=== PATIENT | female | born 1970 | race Caucasian/White ===

== ENCOUNTER 2016-07-07 21:12 | Emergency (ER) | payer SELFPAY ==
--- NOTE | ~2016-07-07 | ER ---
PATIENT'S NAME: MADALYN KENDALL [facility] AGE: 45 Y [address] ROOM: [place] [id number] LOCATION: ED ADMIT DATE: 07/07/2016 ER/Outpatient Report DISCHARGE DATE: 07/07/2016 FAMILY PHYSICIAN: Physician, Unknown ATTENDING PHYSICIAN: Renuka Bowen CHIEF COMPLAINT: Left leg pain. TIME OF THE PATIENT ARRIVAL: 2117 hours. TIME OF THE PATIENT EVALUATION: 2124 hours. HISTORY OF PRESENT ILLNESS: This is a 45-year-old female who presents to the ER. She states she has been dealing with some swelling to her left knee for approximately a month or 2. She states she does not remember injuring her knee, but she states that when she bends it or climbs stairs, she can hear some cracking and popping in it. She states she has she been using a knee sleeve over it to kind of help with that as well. Then, she states 2 mornings ago, she woke up to a Charley horse in her left medial thigh. She states it lasts approximately 40 minutes and then finally it went away. She then developed a hematoma to that area, where her Charley horse was. She is concerned that maybe she has a blood clot in her legs that could be causing her legs to have a Charley horse as well as knee swelling. ALLERGIES AND MEDICATIONS: Please see medication list nurse's notes. PAST MEDICAL HISTORY: Hypothyroidism. 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 SOCIAL HISTORY: She does smoke cigarettes. Smokes marijuana occasionally. Drinks alcohol rarely. REVIEW OF SYSTEMS: A 10-point review of systems was completed and was negative with the exception of those discussed in the HPI. PATIENT'S NAME: MADALYN KENDALL [facility] AGE: 45 Y [address] ROOM: [place], [place] [address] LOCATION: [facility] ADMIT DATE: 07/07/2016 ER/Outpatient Report DISCHARGE DATE: 07/07/2016 FAMILY PHYSICIAN: Physician, Unknown ATTENDING PHYSICIAN: Renuka Bowen PHYSICAL EXAMINATION: VITAL SIGNS: Height 5 feet, 4 inches stated, weight 117.2 kg taken, blood pressure is 132/75, pulse 93, respirations 16, temperature 97.8 degrees tympanically, and saturations 97% on room air. Navid Coma Score is 15. GENERAL: Alert, calm, obese female, in no acute distress. HEENT: Head: Normocephalic. Eyes: Pupils are equal and reactive. Does display moist mucous membranes. LUNGS: Clear to auscultation bilaterally. No wheezes or crackles. HEART: Regular rate and rhythm. EXTREMITIES: She does have ecchymosis noted to the medial aspect of her left thigh. There is some tenderness to the palpation over that entire area. It is not warm to touch. Knee: She does have some swelling noted to her left knee. She has some generalized tenderness over all of the aspects of her knee. She has no calf tenderness. Negative Homans sign on that leg. She has good pedal pulses. NEURO: Cranial nerves 2 through 12 grossly intact. Gait is steady without assistance. LABORATORY DATA: Labs none were done. Ultrasound was done of the left lower extremity and was negative for DVT. IMPRESSION: 1. Left medial thigh hematoma. 2. Left knee swelling x2 months. ASSESSMENT AND PLAN: I did give the patient reassurance. We did give her 2 [place] here in the emergency room for pain. I will dismiss her to home with a prescription for [place] to use as directed. She needs to place ice at these areas. She may use ibuprofen every 6 hours if needed and she needs to follow up with her primary care physician or [facility]. The patient understands and agrees with care. SARA BAZAN PA-C FOR MD [facility] EARL/ayad /[id number] d: 07/08/16 0148 t: 07/09/16 0539, OUTPATIENT REPORT
--- NOTE | ~2016-07-07 | ENPV ---
Vascular Lower Extremities DVT Study Procedure Demographics Patient Name MADALYN KENDALL Date of Study 07/07/2016 Patient Number [id number] Gender Female Date of 1970 Age 45 Visit Number [id number] Height Accession Number [id number] Weight Room Number BSA BMI Referring Jessi Huber Interpreting Raulito Campos MD Physician Physician Physician Ordering Jessi Grayson MD Pediatric Speech Therapist Physician Permit Review Assistant Amparo [facility], [facility] Conclusions Summary No evidence of deep vein thrombosis or superficial thrombophlebitis in the left lower extremity. Procedure Type of Study: Veins:Lower Extremities DVT Study, Lower Extremity Left. Indications for Study:Swelling of Limb. Appropriate Use Criteria:9 Patient Status:STAT. Study Location:ER. Technical Quality:Adequate visualization. Velocities are measured in cm/s ; Diameters are measured in cm Left Lower Extremities DVT Study Measurements Left 2D and Doppler Measurements + + + + +------+------+ + !Location !Visualized!Compressibility!Thrombosis!Signal!Reflux!Reflux ! ! ! ! ! ! ! !(sec) ! + + + + +------+------+ + !GSV Thigh !Yes !Yes !None !Phasic! ! ! + + + + +------+------+ + !Common !Yes !Yes !None !Phasic! ! ! !Femoral ! ! ! ! ! ! ! + + + + +------+------+ + !Prox !Yes !Yes !None !Phasic! ! ! !Femoral ! ! ! ! ! ! ! + + + + +------+------+ + !Mid Femoral!Yes !Yes !None !Phasic! ! ! + + + + +------+------+ + !Dist !Yes !Yes !None !Phasic! ! ! !Femoral ! ! ! ! ! ! ! + + + + +------+------+ + !Popliteal !Yes !Yes !None !Phasic! ! ! + + + + +------+------+ + !Gastroc !Yes !Yes !None !Phasic! ! ! + + + + +------+------+ + !PTV !Yes !Yes !None !Phasic! ! ! + + + + +------+------+ + !Peroneal !Yes !Yes !None !Phasic! ! ! + + + + +------+------+ + Signature dtt: GAY JACOBS dtd: 07/07/16 2201 Physician Self Edit
== END 2016-07-07 22:41 | disposition disaster alternative care site (69) ==
LOC: GMED 21:12
DX: M79.81 Nontraumatic hematoma of soft tissue (principal); M25.462 Effusion, left knee; E03.9 Hypothyroidism, unspecified; F17.210 Nicotine dependence, cigarettes, uncomplicated; Z90.49 Acquired absence of other specified parts of digestive tract; Z85.40 Personal history of malignant neoplasm of unspecified female genital organ; Z88.1 Allergy status to other antibiotic agents; Z79.899 Other long term (current) drug therapy; Z88.0 Allergy status to penicillin; Z88.5 Allergy status to narcotic agent